=== PATIENT | female | born 1955 | race Caucasian/White ===

== ENCOUNTER 2022-12-18 11:10 | Emergency (ER) | payer OTHER, MEDICARE, SELFPAY ==
[2022-12-18] VITALS (92 sets, daily range): BP systolic 95–161; BP diastolic 55–133; PULSE 55–73; RESP 8–20; TEMP 36.4–37.3; O2SAT 79–100; BMI 29.0
--- NOTE | 2022-12-18 11:18 | CT_ITS ---
STUDY: CT BRAIN WITHOUT CONTRAST REASON FOR EXAM: Female, 67 years old. Confusion RADIATION DOSAGE (If Supplied By Facility): CTDIvol = ( 44.99 ) mGy, DLP = ( 748.30 ) mGycm TECHNIQUE: Transaxial CT imaging of the brain was performed without administration of intravenous contrast material. Individualized dose optimization techniques were used for this CT. COMPARISON: No relevant priors. FINDINGS: Normal soft tissue structures. Normal calvarium. There is mild cerebral atrophy with widening of the extra-axial spaces and ventricular dilatation. Normal white matter tracts of the cerebral hemispheres. There are small punctate calcifications of the basal ganglia which are seen in the aging brain as a normal variant. Old lacunar infarct in the insular cortex of the right temporal pole. Normal brainstem. Normal cerebellum. There is no intracranial hemorrhage. There are no findings of an acute ischemic infarction. Normal visualized paranasal sinuses. CT/Brain/Head without Contrast IMPRESSION: Chronic involutional changes of the brain. Old lacunar infarct in the anterior cortex of the right temporal lobe. Electronically Signed: Ger Pratt MD at 12:39 EDT ,
--- NOTE | 2022-12-18 11:18 | RAD_ITS ---
STUDY: X-RAY CHEST REASON FOR EXAM: Female, 67 years old. Confusion TECHNIQUE: Single AP portable view of the chest. COMPARISON: None. FINDINGS: EKG electrodes are seen. Elevation of the right hemidiaphragm. Mild increased linear markings at the lung bases suggestive of prior linear atelectasis. There is borderline cardiomegaly. Normal mediastinum and padmini. Normal visualized pulmonary arteries. There is atherosclerotic tortuosity of the aortic arch and descending thoracic aorta. Normal visualized thoracic spine. Normal visualized ribs, clavicles, and shoulders. There is no demonstrated abnormality of the visualized soft tissue structures of the upper abdomen. RAD/Chest 1 View (Portable) IMPRESSION: Elevation of the right hemidiaphragm with mild increased linear markings at the lung bases suggestive of bibasilar linear atelectasis. Electronically Signed: Ger Pratt MD at 12:38 EDT ,
[2022-12-18] MEDS: 0.9% Normal Saline 1,000 ML 1000 ML IV (11:20)
--- NOTE | 2022-12-18 11:20 | EDS_ITS ---
HPI History of Present Illness Chief Complaint: Alt LOC Narrative Narrative: Patient is a 67-year-old female who is presenting to the ER with chief complaint of altered level consciousness per family. Patient's is at bedside. Patient has been more confused, lethargic, sedated yesterday and today. Patient does take muscle relaxers at home, patient's does not believe that she took extra muscle relaxers but she could have. We do not have the pill bottles to count. Patient said yesterday she was driving and came home at 3:00. Patient gave multiple unusual answers to where she was and what she saw yesterday. Patient said that she was in the [facility] yesterday and did not see anybody, but there are no meetings at the [facility] yesterday they are today. Patient also went through a hop soc To order food, and she told the that she ordered a pizza and they do not have pizza on the menu. Patient also said a man with white hair came out to talk to her, 's not sure who that was if anybody. Concerned the patient is having visual hallucinations and confusion. Patient currently is sedated, she does not wear oxygen at home. Patient is 1 L of oxygen and she is at 100%. When you lightly touch her chest, she will open up her eyes, answer questions in 1 or 2 sentences and then close her eyes again. Patient is comfortably sedated. Patient does not appear to be toxic. She has no fever. She is not meeting any sepsis measures. states that patient's been having neurological work-up since June and she has been having intermittent visual hallucinations and slowly declining with intermittent confusion and sedation since the beginning of this year. Patient's had multiple blood test, MRIs have showed no acute endings. Patient's is at a loss. She normally walks with her 2 [address] and [address] a car. Patient cannot function today and patient was brought to the ER for evaluation because he cannot take care of her at home today. Patient has been up since 130 this morning with . Patient at that time is when she thought she saw the light on in the car outside. Patient's was up with the patient from 1 30-5 30 monitoring her. Patient's went to bed at 5:30 AM. The side garage door was open, patient may have went outside to smoke. Patient does have a new cigarette burn to the left upper part of her gown. Patient also has food in front of her chest on her gown as well, patient's thinks she was eating apple pie and may have spilled a drink on herself as well. No acute extremity complaint. No rash. No nausea vomiting or diarrhea that knows of. [facility] Medical History (Updated 12/18/22 @ 16:[address] Tiago Wheat, DO) Chronic back pain Diabetes mellitus Hyperlipidemia Hypertension Allergy/AdvReac Type Severity Reaction Status Date / Time Sulfa (Sulfonamide Allergy Severe Anaphylaxis Verified 12/18/22 12:29 Antibiotics) Social History Smoking Status: Light Smoker (<10/day) ROS ROS ED ROS Narrative Review of systems is limited, patient's provides the review of systems. Please see HPI for positive review of systems and pertinent review of systems. Patient has no headache, no chest pain or shortness of breath, no nausea or vomiting, no rash, no other acute complaints. EXAM Physical Exam Narrative Exam Narrative: Vital signs reviewed and patient is not hypoxic. General: The patient appears sedated, patient will open up her eyes and answer questions in 1 or 2 sentences. Patient is lethargic, sedated, somnolent, not listless. Patient is resting comfortably on cart. GCS of 14, -1 for eye opening. Skin: Warm, dry, no pallor noted. There is no rash noted. Head: Normocephalic, atraumatic Eye: Normal conjunctiva, no drainage, EOMI. PERRL. Ears, Nose, Mouth, and Throat: oral mucosa is moist. Nares patent. Mouth without vesicles. Cardiovascular: Regular Rate and Rhythm, no murmurs, gallops, or rubs. Respiratory: Patient is in no distress, no accessory muscle use, lungs are clear to auscultation, no wheezing, rales or rhonchi Back: non-tender, no CVA tenderness bilaterally to percussion. NO CTLS midline or paraspinal tenderness to palpation. GI: Soft, obese, no tenderness to palpation, no masses appreciated. No rebound, guarding, or rigidity noted. Musculoskeletal: The patient has full range of motion of all extremities and joints with no difficulty, however, patient is diffusely weak to arms and legs, no acute abnormalities. No sensory deficits.. Neurological: A&O x4, normal speech, but it is soft, only speaks in 1 or 2 sentences, will answer questions appropriately but you need to do a light sternal rub to get patient open up her eyes to answer questions for, no obvious focal neurological deficits. Psychiatric: sedated, Cooperative Const Vital Signs: 12/18/22 11:12 12/18/22 11:14 12/18/22 11:11 Temperature 99.1 F Temperature Source Temporal Pulse Rate 60 60 Respiratory Rate 18 10 L Respiratory Effort Short of Breath Respiratory Depth Blood Pressure 95/55 L 99/62 Blood Pressure Mean 68 74 Pulse Ox 85 97 Oxygen Delivery Method Room Air Nasal Cannula Oxygen Flow Rate (L/min) 0 4 12/18/22 11:30 12/18/22 11:31 12/18/22 11:45 Temperature Temperature Source Pulse Rate 61 61 62 Respiratory Rate 9 L 9 L 10 L Respiratory Effort Respiratory Depth Blood Pressure 99/55 L 99/62 105/55 L Blood Pressure Mean 69 74 71 Pulse Ox 79 100 98 Oxygen Delivery Method Non-Rebreather Non-Rebreather Nasal Cannula Oxygen Flow Rate (L/min) 15 5 12/18/22 11:47 12/18/22 11:17 12/18/22 12:17 Temperature 97.6 F L 98.1 F Temperature Source Temporal Temporal Pulse Rate 58 L 55 L Respiratory Rate 12 9 L Respiratory Effort Respiratory Depth Shallow Blood Pressure 96/55 L 96/55 L Blood Pressure Mean 68 68 Pulse Ox 97 99 Oxygen Delivery Method Nasal Cannula Nasal Cannula Nasal Cannula Oxygen Flow Rate (L/min) 5 3 3 12/18/22 13:17 12/18/22 14:26 12/18/22 12:37 Temperature 98.1 F Temperature Source Temporal Pulse Rate 66 64 66 Respiratory Rate 10 L 10 L 10 L Respiratory Effort Respiratory Depth Blood Pressure 115/66 127/68 H Blood Pressure Mean 82 87 Pulse Ox 97 97 98 Oxygen Delivery Method Nasal Cannula Nasal Cannula Nasal Cannula Oxygen Flow Rate (L/min) 3 1 3 12/18/22 12:00 12/18/22 12:13 12/18/22 12:15 Temperature Temperature Source Pulse Rate Respiratory Rate Respiratory Effort Respiratory Depth Blood Pressure 102/59 L 106/67 Blood Pressure Mean 74 81 Pulse Ox 98 99 Oxygen Delivery Method Oxygen Flow Rate (L/min) 12/18/22 12:21 12/18/22 12:30 12/18/22 12:40 Temperature Temperature Source Pulse Rate 66 66 66 Respiratory Rate 10 L 9 L 9 L Respiratory Effort Respiratory Depth Blood Pressure Blood Pressure Mean Pulse Ox 99 99 99 Oxygen Delivery Method Oxygen Flow Rate (L/min) 12/18/22 12:50 12/18/22 13:00 12/18/22 13:10 Temperature Temperature Source Pulse Rate 67 67 67 Respiratory Rate 9 L 9 L 9 L Respiratory Effort Respiratory Depth Blood Pressure Blood Pressure Mean Pulse Ox 100 99 100 Oxygen Delivery Method Oxygen Flow Rate (L/min) 12/18/22 13:20 12/18/22 13:30 12/18/22 13:40 Temperature Temperature Source Pulse Rate 67 67 66 Respiratory Rate 10 L 10 L 9 L Respiratory Effort Respiratory Depth Blood Pressure Blood Pressure Mean Pulse Ox 100 100 100 Oxygen Delivery Method Oxygen Flow Rate (L/min) 12/18/22 13:46 12/18/22 13:50 12/18/22 14:00 Temperature Temperature Source Pulse Rate 67 65 65 Respiratory Rate 11 L 9 L 8 L Respiratory Effort Respiratory Depth Blood Pressure 115/66 118/66 Blood Pressure Mean 74 82 Pulse Ox 99 95 Oxygen Delivery Method Oxygen Flow Rate (L/min) 12/18/22 14:10 12/18/22 14:15 12/18/22 14:20 Temperature Temperature Source Pulse Rate 65 65 65 Respiratory Rate 10 L 10 L 10 L Respiratory Effort Respiratory Depth Blood Pressure 127/68 H Blood Pressure Mean 84 Pulse Ox Oxygen Delivery Method Oxygen Flow Rate (L/min) 12/18/22 14:30 12/18/22 14:40 12/18/22 14:45 Temperature Temperature Source Pulse Rate 64 64 64 Respiratory Rate 9 L 10 L 11 L Respiratory Effort Respiratory Depth Blood Pressure 122/63 H 139/64 H Blood Pressure Mean 81 83 Pulse Ox 100 Oxygen Delivery Method Nasal Cannula Oxygen Flow Rate (L/min) 1 12/18/22 14:50 12/18/22 15:00 12/18/22 15:10 Temperature Temperature Source Pulse Rate 65 63 Respiratory Rate 10 L 10 L Respiratory Effort Respiratory Depth Blood Pressure 119/65 Blood Pressure Mean 82 Pulse Ox Oxygen Delivery Method Oxygen Flow Rate (L/min) MDM MDM MDM Narrative Medical decision making narrative: [id number] have [address] Dr[address] Alba from [facility]. She is the hospitalist working. She has excepted admission. Dr. Irving is a neurologist who works at [facility] who will be in consultation as well. I had a 20-minute conversation with after patient has been accepted and admitted to the [facility]. He added a lot more information that he did not initially talk about through my initial HPI and physical exam. Patient has been having neurological work-up since June. Patient's had intermittent confusion, fatigue, and also visual hallucinations intermittently since the beginning of this year in 2022. Starting in June, patient had a MRI of the brain ordered that was denied several times secondary to insurance purposes. Patient has been working with Dr. Irving, neurologist from [facility]. Patient has had multiple blood test, imaging test from neurology. Patient was going to have a lumbar puncture, patient refused to have test done. Patient has not had a lumbar puncture done yet, but the neurologist Dr. Irving thought it was probably not necessary since her MRI of the brain that was eventually done showed no acute findings. I found this information out after it spoke to the admitting hospitalist from [facility]. Patient is taking Valium, Flexeril, but also is prescribed oxycodone. Patient is prescribed 3 a day for chronic pain, but a lot of times only takes 1 or 2 if any. The possibility or concern for possible benzodiazepine overdose was suggested. Patient is going to get all the pill bottles and bring them to [facility] so they can count the tabs. Patient's pupils were checked again, they are still 4/2, equal, bilateral, not pinpoint. Patient is sedated still, 100% on 1 L of oxygen. She does not normally wear oxygen at home. Patient has been having visual hallucinations that have been ongoing since the beginning of the year. Earlier this morning at 1:30 in the morning, patient thought she saw a light on in the car outside, stated that she cannot even see the car from the bedroom where she was. Patient will intermittently see children in the house that live in [place]. Patient thought she saw 's son in the kitchen when he was not there. Patient continues to have multiple [place] psych issues and complaints. Patient has not had psychiatric thorough evaluation yet which may be needed as well. Patient will be transferred in stable condition to [facility]. They do have beds available today and admission and transfer should happen today. Patient received 1 L of IV fluid Lab Data Attestation: I reviewed the patient's lab results. Lab results narrative: Patient has slight elevated LFTs, she has no right upper quadrant pain, midepigastric pain or any abdominal pain. Labs: Laboratory Results - last 24 hr 12/18/22 12/18/22 12/18/22 11:12 11:18 13:45 WBC 10.2 RBC 3.78 L Hgb 11.7 L Hct 36.3 L MCV 96.0 MCH 31.0 MCHC 32.2 RDW Std Deviation 47.5 H RDW Coeff of Phylicia 13.3 Plt Count 217 MPV 10.5 Immature Gran % (Auto) 0.400 Neut % (Auto) 62.0 Lymph % (Auto) 22.1 [place] % (Auto) 15.0 H Eos % (Auto) 0.3 Baso % (Auto) 0.2 Absolute Neuts (auto) 6.3 Absolute Lymphs (auto) 2.25 Nucleated RBC % 0 Differential Comment COMMENT Sodium 137 Potassium 4.4 Chloride 100 Carbon Dioxide 33.0 H Anion Gap 4 L BUN 17 Creatinine 1.17 H Estim Creat Clear Calc 40.84 Est GFR (MDRD) Af Amer 60 Est GFR (MDRD) Non-Af 49 L BUN/Creatinine Ratio 14.5 Glucose 120 H Lactic Acid 1.0 Calcium 8.7 Total Bilirubin 0.60 AST 113 H ALT 83 H Alkaline Phosphatase 153 H Troponin I High Sens 5 7 B-Natriuretic Peptide 99.3 Total Protein 6.6 Albumin 3.1 L Globulin 3.5 Albumin/Globulin Ratio 0.9 Lipase 17 Urine Color Yellow Urine Clarity Sl. Cloudy Urine pH 7.0 Ur Specific [place] 1.010 Urine Protein Negative Urine Glucose (UA) Normal Urine Ketones 5 H Urine Occult Blood Negative Urine Nitrite Negative Urine Bilirubin 1 H Urine Urobilinogen Normal Ur Leukocyte Esterase 25 H Urine RBC 0 SEEN Urine WBC 0 SEEN Ur Squamous Epith Cells 0-5 SEEN Urine Bacteria 0 SEEN Urine Mucus 0 SEEN Radiography Diagnostic Testing: Clinical Impression(s) from Imaging Studies Brain CT 12/18/22 11:18 IMPRESSION: Chronic involutional changes of the brain. Old lacunar infarct in the anterior cortex of the right temporal lobe. Electronically Signed: Ger Pratt MD at 12:39 EDT , Chest X-Ray 12/18/22 11:18 IMPRESSION: Elevation of the right hemidiaphragm with mild increased linear markings at the lung bases suggestive of bibasilar linear atelectasis. Electronically Signed: Ger Pratt MD at 12:38 EDT , EKG Initial EKG: Attestation: I personally reviewed and interpreted this EKG as follows: Comments: EKG interpretation. Sinus bradycardia at 59 beats a minute. Normal axis deviation. No acute ST elevation, no acute ectopy. QTc of 455. Discharge Plan Triage Chief Complaint: Alt LOC Other Complaint: Chest Pain ED Provider: Tiago Wheat Dx/Rx/DC Orders Clinical Impression: Elevated LFTs, Confusion, Hallucination, visual, Altered mental status Primary Care Provider: Ko Wadr Referrals: Ko Ward MD [Primary Care Provider] - Disposition Disposition: Acute Care Hospital Discharge Location: [facility]
[2022-12-18 11:33] LABS: Absolute Lymphocyte Count 2.25 X10^3/uL (0.83-4.51); Absolute Neutrophil Count 6.3 X10^3/uL (2.0-7.7); Basophil# 0.02 X10^3/uL; Basophil% 0.2 % (0-1); Eosinophil# 0.03 X10^3/uL; Eosinophils% 0.3 % (0-5); Hematocrit 36.3 % (37-47); Hemoglobin 11.7 g/dL (12.0-15.0); Lymphocyte # 2.25 X10^3/ul (0.83-4.51); Lymphocyte % 22.1 % (19-41); Mean Corp Hgb Conc 32.2 g/dL (32-36); Mean Platelet Vol. 10.5 fl (6.2-12.0); Monocyte# 1.53 X10^3/uL; NRBC Flagged by Analyzer 0 % (0-5); Neutrophil # 6.33 X10^3/uL (2.7-7.7); POSITIVE DIFFERENTIAL YES; Platelet Count 217 K/mm3 (150-450); RBC Distribution Width CV 13.3 % (11.6-14.6); RBC Distribution Width SD 47.5 fl (35.1-43.9); Red Blood Count 3.78 M/mm3 (4.2-5.4); White Blood Count 10.2 K/mm3 (4.4-11.0)
[2022-12-18 11:44] LABS: Differential Indicated SCAN CRITERIA MET
[2022-12-18 11:44] LABS: Bacteria 0 SEEN /hpf (None Seen); Mucous, Urine 0 SEEN /hpf (<or=2+); Red Blood Cells-Urine 0 SEEN /hpf (0-5); White Blood Cells 0 SEEN /hpf (0-5)
[2022-12-18 11:47] LABS: Color, Urine Yellow (Yellow); Glucose, Dipstick Normal (Normal); Ketone-Dipstick 5 mg/dl (Negative); Leukocyte Esterase-Dipstick 25 /ul (Negative); Nitrite-Dipstick Negative (Negative); Occult Blood-Urine Negative /ul (Negative); Protein-Dipstick Negative (Negative); Urine Clarity Sl. Cloudy (Clear); Urine Urobilinogen Normal (Normal)
[2022-12-18 11:49] LABS: Urine Bilirubin Dipstick 1 mg/dL (Negative)
[2022-12-18 11:54] LABS: ALB/GLOB Ratio 0.9 RATIO (0.9-2.4); AST(SGOT) 113 U/L (15-37); Alanine Aminotransfer ALT/SGPT 83 U/L (13-56); Albumin, Serum 3.1 g/dL (3.2-5.0); Alkaline Phosphatase 153 U/L (45-117); Anion Gap 4 (5-15); BUN 17 mg/dL (7-18); BUN/Creat Ratio 14.5 RATIO (10-20); Calcium,Total 8.7 mg/dL (8.5-10.1); Chloride 100 mmol/L (98-107); Creatinine, Serum 1.17 mg/dL (0.55-1.02); EST Glomerular Filtration Rate 49 mL/min (>60); Est Glom Filt Rate - Afr Amer 60 mL/min (>60); Estimated Creatinine Clearance 40.84 ml/min; Globulin 3.5 g/dL (2.2-4.2); Glucose 120 mg/dL (74-106); Lipase 17 U/L (13-75); Potassium 4.4 mmol/L (3.5-5.1); Protein, Total 6.6 g/dL (6.4-8.2); Sodium Level 137 mmol/L (136-145); Troponin-I HS (w/2H Reflex) 5 pg/mL (3.0-54.0)
[2022-12-18 11:57] LABS: Squamous Epithelial Cells - UA 0-5 SEEN /hpf (5-10)
[2022-12-18 12:06] LABS: BNP,B-Type NATRIURETIC PEPTIDE 99.3 pg/mL (0-100)
[2022-12-18 13:24] LABS: Reflex Troponin-HS? (from REC) Y
[2022-12-18 14:26] LABS: Troponin-I HS 7 pg/mL (3.0-54.0)
--- NOTE | 2022-12-18 20:30 | ED.RN ---
report called to CC nurse Crys Conway [id number]
[2022-12-18] MEDS: Ketorolac 30 MG/ML Syringe IV (22:22)
== END 2022-12-18 22:45 | disposition short-term general hospital (02) ==
PROVIDERS: Emergency Provider Emergency Medicine; Visit Provider Emergency Medicine
DX: R79.89 Other specified abnormal findings of blood chemistry (principal); R41.82 Altered mental status, unspecified; R44.1 Visual hallucinations; M54.9 Dorsalgia, unspecified; F17.200 Nicotine dependence, unspecified, uncomplicated; G89.29 Other chronic pain
CPT/HCPCS: 70450; 71045; 80053; 81001; 83605; 83690; 83880; 84484; 85025; 93005; 96361; 96374; 99285; P9612; A4216